=== PATIENT | male | born 1950 | race African-American/Black ===

== ENCOUNTER 2016-08-03 01:47 | Inpatient (IN) ==
[2016-08-03 02:20] LABS: Eosinophils % 0.3 % (0.00-10.9); Hematocrit 21.4 VOL% (42.0-52.0); Hemoglobin 6.7 GM/DL (14.0-18.0); Immature Granulocytes % 0.8 %; Immature Granulocytes Absolute 0.06 #; Lymphocytes % 13.4 % (21.2-54.2); Mean Corpuscular HGB Conc 31.3 GM/DL (32-36); Mean Corpuscular Hemoglobin 28 PG (27-34); Mean Corpuscular Volume 89.2 FL (87-102); Mean Platelet Volume 9.6 FL (9.6-12.0); Monocytes # 0.7 10*3/uL (0.11-0.8); Monocytes % 9.1 % (1.7-12.7); Neutrophils # 5.9 10*3/uL (1.4-7.4); Neutrophils % 76.4 % (38.7-73.9); Platelet Count 402 10*3/uL (130-400); Red Cell Distribution Width 15.3 % (9.3-17.3); White Blood Count 7.8 10*3/uL (4.5-13.71)
[2016-08-03] MEDS ORDERED: DEXTROSE 5% NACL 0.45% 1,000 ML IV SCH (02:30)
[2016-08-03 02:41] LABS: Magnesium 2.5 MG/DL (1.8-2.4); Osmolality,Calculated 282.5 MOS/KG (273-304); Potassium 4.1 MMOL/L (3.5-5.1)
[2016-08-03] MEDS ORDERED: DEXTROSE 50% 25 GM/50 ML VIAL IV STA (03:09)
--- NOTE | 2016-08-03 03:10 | Emergency Department Note ---
Bhavna Christian Kasabria, am scribing for, and in the presence of, Mateo Huang MD 02:23. Sal Christian Robert M, MD, personally performed the services described in this documentation, ascribed by Abdelrahman Huggins in my presence, and it is both accurate and complete . Arrival - Arrival Chief Complaint: Non-Specific Stated Complaint: LOW BLOOD SUGAR ED Nursing Triage Note: PT WAS SENT PER FAMILY FOR LOW BLOOD SUGAR. STATES THAT HE STOPPED ALL HIS DIABETIC MEDICATIONS ABOUT THREE WEEKS AGO WHEN HE WAS LAST SEEN IN THE ER. PT HAS HISTORY OF PANCREATIC CANCER. DENIES ANY OTHER COMPLAINTS AT TIME OF TRIAGE. CBG AT TIME OF TRIAGE. 56MG/DL Mode of Arrival: Stretcher Source: Patient, Family (daughter ) Time Seen by Provider: 08/03/16 02:09 - History of Present Illness HPI Narrative: Pt is a 66 y/o black male presenting to the ED with c/o hypoglycemia. Pt has a PMH of pancreatic CA and has not taken his diabetic medications in three weeks because of personal choice. Pt's sclera is jaundice in appearance. He denies fever, chills, nausea, vomiting, diarrhea, abdominal pain, back pain, MCKENZIE, and vision change. He denies urinary symptoms such as dysuria, frequency, and hematuria. He states his PO intake has decreased due to loss of appetite. Pt continues to be compliant with his HTN medication and cholesterol medication. CBG at triage was 56MG/DL. . Consistency: constant Severity: moderate Allergies/Adverse Reactions: Allergies Allergy/AdvReac Type Severity Reaction Status Date / Time No Known Allergies Allergy Unverified 12/14/14 12:59 Home Medications: Home Medications Medication Instructions Recorded Confirmed Type Atorvastatin [Lipitor] 10 mg PO DAILY 12/14/14 08/03/16 History Losartan Potassium 50 mg PO BEDTIME 12/14/14 08/03/16 History Omeprazole 40 mg PO BEDTIME 12/14/14 08/03/16 History Review of System - Review of System 12 point system: reviewed and no additional remarkable complaints except as stated - Review of System Constitutional: Absent: chills, fever, weakness Eyes: Present: other (jaundice sclera ). Absent: vision change Head/Ears/Nose/Throat: Absent: earache, nasal drainage Respiratory: Absent: cough, wheezing Cardiovascular: Absent: chest pain, dyspnea on exertion Gastrointestinal: Absent: abdominal pain, nausea, vomiting Genitourinary male: Absent: dysuria Musculoskeletal: Absent: arm pain, back pain, leg pain, neck pain Skin: Absent: rash Neurological: Absent: headache, weakness, numbness, confusion, abnormal gait, vertigo Psychiatric: Absent: anxiety Endocrine: Absent: fatigue Hematological/Lymphatic: Absent: easy bleeding Allergic/Immunologic: Absent: facial swelling Medical,Surgical,& Family Hx - Medical History Cardio: History of: Hypertension HEENT: History of: Eye Problem (READING GLASSES) Endocrine: History of: Diabetes Mellitus (NIDDM), Dyslipidemia Renal: History of: Renal Problems (STENT PLACED/ FOR CYSO STENT CHANGE 12/21/14) Gastrointestinal: History of: GERD Other: History of: Cancer (PANCREATIC CA APR 2014 DR. YOUNG-PT NO LONGER TAKING CHEMO PER HIS DECISION) - Surgical History Abdominal Surgeries: Surgical HX of: Appendectomy, Colonoscopy, Hernia Repair ( INGUINAL HERNIA REPAIR) - Family History Family History: Reports;: Family Cancer (MOTHER), Family Diabetes (MOTHER), Family Hypertension (MOTHER) - Social History Smoking Status: Never smoker Frequency of Alcohol Use: None Type of Drug Use: None Exam Vital Signs: Vital Signs Temperature 98.6 F 08/03/16 01:47 Pulse Rate 79 08/03/16 02:53 Respiratory Rate 20 08/03/16 02:53 Blood Pressure 96/65 08/03/16 02:53 O2 Sat by Pulse Oximetry 100 08/03/16 02:53 - General General appearance: alert, in no apparent distress - Head Head exam: Present: atraumatic, normocephalic, normal inspection - Eye Eye exam: Present: PERRL, EOMI, other (scleral jaundice ). Absent: normal appearance - ENT ENT exam: Present: normal exam, normal oropharynx, mucous membranes moist, TM's normal bilaterally, normal external ear exam - Neck Neck exam: Present: normal inspection, full ROM, trachea midline. Absent: tenderness - Chest Chest inspection: Present: normal inspection, symmetric chest wall rise - Respiratory Respiratory exam: Present: normal lung sounds bilaterally - Cardiovascular Cardiovascular exam: Present: regular rate, normal rhythm, normal heart sounds - Abdominal Exam Abdominal exam: Present: soft, normal bowel sounds. Absent: distention, tenderness, guarding, rebound - Extremities Exam Extremities exam: Present: normal inspection, full ROM. Absent: tenderness, normal capillary refill, pedal edema, calf tenderness - Back Exam Back exam: Present: normal inspection, full ROM. Absent: tenderness - Neurological Exam Neurological exam: Present: alert, oriented X3, CN II-XII intact, normal gait, reflexes normal. Absent: motor sensory deficit - Psychiatric Psychiatric exam: Present: normal affect, normal mood - Skin Skin exam: Present: warm, dry, intact, normal color. Absent: rash Course - Consultations Consultation #1: Dr. Shade Escobar will evaluate and admit the patient. Time: 03:10 Results - Labs CBC & BMP: 08/03/16 02:04 08/03/16 02:04 Lab Results: I have reviewed the patients labs Labs: Lab Results WBC 7.8 10*3/uL (4.5-13.71) 08/03/16 02:04 RBC 2.40 10*6/uL (3.8-5.5) L 08/03/16 02:04 Hgb 6.7 GM/DL (14.0-18.0) L 08/03/16 02:04 Hct 21.4 VOL% (42.0-52.0) L 08/03/16 02:04 MCV 89.2 FL (87-102) 08/03/16 02:04 MCH 28 PG (27-34) 08/03/16 02:04 MCHC 31.3 GM/DL (32-36) L 08/03/16 02:04 RDW 15.3 % (9.3-17.3) 08/03/16 02:04 Plt Count 402 10*3/uL (130-400) H 08/03/16 02:04 MPV 9.6 FL (9.6-12.0) 08/03/16 02:04 Neut % (Auto) 76.4 % (38.7-73.9) H 08/03/16 02:04 Lymph % (Auto) 13.4 % (21.2-54.2) L 08/03/16 02:04 [place] % (Auto) 9.1 % (1.7-12.7) 08/03/16 02:04 Eos % (Auto) 0.3 % (0.00-10.9) 08/03/16 02:04 Baso % (Auto) 0.0 % (0.0-0.8) 08/03/16 02:04 Neut # (Auto) 5.9 10*3/uL (1.4-7.4) 08/03/16 02:04 Lymph # (Auto) 1.0 10*3/uL (1.4-4.0) L 08/03/16 02:04 [place] # (Auto) 0.7 10*3/uL (0.11-0.8) 08/03/16 02:04 Eos # (Auto) 0.0 10*3/uL (0.0-0.87) 08/03/16 02:04 Baso # (Auto) 0.0 10*3/uL (0.0-0.2) 08/03/16 02:04 Immature Gran % 0.8 % 08/03/16 02:04 Nucleated RBC % 0.0 /100WBC 08/03/16 02:04 Immature Gran # 0.06 # 08/03/16 02:04 Nucleated RBCs # 0.00 10*3/uL 08/03/16 02:04 Sodium 139 MMOL/L (136-145) 08/03/16 02:04 Potassium 4.1 MMOL/L (3.5-5.1) 08/03/16 02:04 Chloride 107 MMOL/L (98-107) 08/03/16 02:04 Carbon Dioxide 20 MMOL/L (21-32) L 08/03/16 02:04 Anion Gap 16.1 MMOL/L (5.0-15.0) H 08/03/16 02:04 BUN 39 MG/DL (7-18) H 08/03/16 02:04 Creatinine 3.80 MG/DL (0.70-1.30) H 08/03/16 02:04 GFR Calculation 18 ML/MIN 08/03/16 02:04 BUN/Creatinine Ratio 10.00 RATIO (6.00-20.00) 08/03/16 02:04 Glucose 52 MG/DL (74-106) L 08/03/16 02:04 Calculated Osmolality 282.5 MOS/KG (273-304) 08/03/16 02:04 Calcium 8.0 MG/DL (8.5-10.1) L 08/03/16 02:04 Magnesium 2.5 MG/DL (1.8-2.4) H 08/03/16 02:04 Disposition Clinical Impression: terminal pancreatic cancer, Symptomatic anemia, Adult onset persistent hyperinsulinemic hypoglycemia without insulinoma Case discussed with: patient, patient's family Disposition: Still a Patient Condition: Stable Time of Disposition: 03:09
[2016-08-03] MEDS ORDERED: ONDANSETRON 4 MG/2 ML VIAL IV PRN (03:11)
[2016-08-03] MEDS ORDERED: guaiFENesin/DM ER 600-30 MG TABLET PO PRN (03:11)
[2016-08-03] MEDS ORDERED: DOCUSATE SODIUM 100 MG CAPSULE PO PRN (03:11)
[2016-08-03] MEDS ORDERED: DEXTROSE 50% 25 GM/50 ML VIAL IV ONE (03:11)
[2016-08-03] MEDS ORDERED: GLUCAGON 1 MG VIAL IM PRN (03:13)
[2016-08-03] MEDS ORDERED: SODIUM CHLORIDE 0.9% 250 ML IV PRN (03:14)
[2016-08-03] MEDS: DEXTROSE 50% 25 GM/50 ML VIAL IV PRN ×5 (07:23→22:36)
[2016-08-03] MEDS: INSULIN LISPRO 100 UNIT/ML SUBCUT SCH ×4 (07:25→21:14)
[2016-08-03] MEDS: PANTOPRAZOLE 40 MG TABLET PO SCH (10:05)
--- NOTE | 2016-08-03 13:01 | Family Practice History&Phys ---
Assessment and Plan (1) Symptomatic anemia Status: Acute Assessment and plan: 08/03/2016 we are transfusing him 2 units of blood will check an H&H in about 4 hours Current Visit: Yes (2) Adult onset persistent hyperinsulinemic hypoglycemia without insulinoma Status: Acute Assessment and plan: 08/03/2016. We are going to watch his blood sugars at with Accu-Cheks and given glucose necessary. Will have him on a sliding scale Ben to Current Visit: Yes (3) Pancreatic cancer Status: Acute Assessment and plan: 08/13/2016: Patient is being Treated for pain and palliation. We'll going to hold off oncology services Current Visit: Yes History of Present Illness Chief complaint: weakness, symptomatic anemia, hypoglycemia History of present illness: Mr. Serna is a 66 year old male A primary patient of Dr. Barney Mai came in to the emergency room with symptomatic anemia and weakness and also had some mild shortness of breath as well as hypoglycemia. His blood sugar was very low, 52 in the emergency room And was given glucose. It was noted also that his hemoglobin and hematocrit were 6 and 21. He does have a history of pancreatic cancer which is being treated in a palliative fashion at this time. He is severely hyperbilirubinemic with scleral icterus. His creatinine is also elevated at 3.8 which on previous admission was about 2.1. He is alert and oriented and answers all questions appropriately and is in no acute respiratory distress nor does he have any chest pain or any significant abdominal pain. As mentioned we are only treating the patient's pain and generalized symptoms palliatively. Were not doing any chemotherapy or radiation therapy. Historically had seen Dr. young and if any problems occur otherwise, we'll consider consult. Otherwise will give him blood and watch his sugars at this time. We will get him on sliding scale and treat him with glucose necessary. The family was in the room and they are in full agreement with above plan Home Medications Medication Instructions Recorded Confirmed Type Losartan Potassium 50 mg PO BEDTIME 12/14/14 08/03/16 History Omeprazole 40 mg PO BEDTIME 12/14/14 08/03/16 History Ondansetron HCl 4 mg PO Q6HR PRN 08/03/16 08/03/16 History Simvastatin [Zocor] 20 mg PO DAILY 08/03/16 08/03/16 History Allergies Allergy/AdvReac Type Severity Reaction Status Date / Time No Known Allergies Allergy Unverified 12/14/14 12:59 12 point system: reviewed and no additional remarkable complaints except as stated - EENT Nose, mouth and throat: Present: as per HPI - Cardiovascular Cardiovascular: Absent: chest pain at rest, diaphoresis - Gastrointestinal Gastrointestinal: Absent: abdominal pain, bloating - Musculoskeletal Musculoskeletal: Present: other (generalized fatigue and muscle wasting) Medical,Surgical,& Family Hx - Medical History Cardio: History of: Hypertension HEENT: History of: Eye Problem (READING GLASSES) Endocrine: History of: Diabetes Mellitus (NIDDM), Dyslipidemia Rheumatology: History of;: Rheumatoid Arthritis Renal: History of: Renal Problems (STENT PLACED/ FOR CYSO STENT CHANGE 12/21/14) Gastrointestinal: History of: GERD, Liver Problems (jaundice) Musculoskeletal: History of: Herniated Disk Hematology: History of: Anemia Other: History of: Cancer (PANCREATIC CA APR 2014 DR. YOUNG-PT NO LONGER TAKING CHEMO PER HIS DECISION) - Surgical History HEENT Surgeries: Patient denies: Tonsilectomy & Adenoidectomy Abdominal Surgeries: Surgical HX of: Appendectomy, Colonoscopy, Hernia Repair ( INGUINAL HERNIA REPAIR) - Family History Family History: Reports;: Family Cancer (MOTHER), Family Diabetes (MOTHER), Family Hypertension (MOTHER) - Social History Smoking Status: Never smoker Frequency of Alcohol Use: None Type of Drug Use: None Exam - Constitutional Vitals: Period Temp Pulse Resp BP Sys/Zhu Pulse Ox Last 24 Hr 95.2 F-98.1 F 68-93 18-24 80-127/52-82 99 Exam: Generally somewhat emaciated. He has obvious scleral icterus. It is very alert however and oriented. HEENT neck is supple trachea midline. Lungs generally clear Except for a few basilar rails. Patient does have a Mediport in place on the left subclavian area Abdomen soft nondistended patient denies any pain Extremities no clubbing cyanosis or edema. There is some generalized mild muscle wasting. Neurologically no lateralizing signs or motor sensory deficits. Results - Labs CBC & BMP: 08/03/16 02:04 08/03/16 02:04
[2016-08-03] MEDS: GLUCAGON 1 MG VIAL IV PRN ×4 (13:31→22:13)
[2016-08-03] MEDS ORDERED: DEXTROSE 10% 1,000 ML IV SCH (16:00)
[2016-08-03] MEDS: LOSARTAN 50 MG TABLET PO SCH (21:11)
[2016-08-03] MEDS ORDERED: methylPREDNISolone SOD SUC 125 MG/2 ML VIAL IV ONE (22:23)
[2016-08-04 00:24] LABS: Hematocrit 29.9 VOL% (42.0-52.0); Hemoglobin 10.2 GM/DL (14.0-18.0)
[2016-08-04] MEDS: GLUCAGON 1 MG VIAL IV PRN (00:28)
[2016-08-04] MEDS ORDERED: DEXTROSE IV SCH ×2 (01:00)
[2016-08-04] MEDS: DEXTROSE 50% 25 GM/50 ML VIAL IV PRN ×2 (02:38→04:15)
--- NOTE | 2016-08-04 08:22 | Family Practice Progress Note ---
Family Practice - PN: Subj Interval history: Patient is doing fairly well over the last 12 hours and his blood sugars seem to be stable with D12.5 infusing. Patient states he just does not have any appetite and I asked him if he can take some boost or something sophy to that he thought he might. He denies any abdominal pain or discomfort. I think it safe for him to go to the floor with a monitor and frequent Accu-Cheks. He is a DNR. Exam (Progress Note) - Constitutional Vitals: Period Temp Pulse Resp BP Sys/Zhu Pulse Ox Last 24 Hr 95.2 F-100.1 F 57-84 11-24 80-132/52-82 97-100 Exam: Objective a well-developed gentleman who is awake alert and able give a good history. Cardiovascular: Heart rates regular there is no murmurs or gallops. Respiratory: Lungs clear to auscultation bilaterally. Abdomen: Name is completely soft and nontender to palpation. Results - Labs CBC & BMP: 08/03/16 23:44 08/03/16 02:04 Lab Results: I have reviewed the past 24 hour labs Assessment and Plan (1) Adult onset persistent hyperinsulinemic hypoglycemia without insulinoma Status: Acute Assessment and plan: 08/04/2016: We will continue dextrose infusion Current Visit: Yes (2) Pancreatic cancer Status: Acute Assessment and plan: 08/04/2016: Patient does not request any further therapy. Current Visit: Yes Specialty Discharge - Follow Up or Referrals - Discharge Medications No Action Omeprazole 40 mg PO BEDTIME Losartan Potassium 50 mg PO BEDTIME Ondansetron HCl 4 mg PO Q6HR PRN PRN Reason: Nausea Simvastatin [Zocor] 20 mg PO DAILY
[2016-08-04] MEDS: INSULIN LISPRO 100 UNIT/ML SUBCUT SCH ×3 (08:27→16:43)
[2016-08-04] MEDS: PANTOPRAZOLE 40 MG TABLET PO SCH ×2 (08:27→21:01)
[2016-08-04] MEDS ORDERED: ONDANSETRON 4 MG TABLET PO PRN (11:13)
[2016-08-04] MEDS: DEXTROSE IV SCH (15:15)
[2016-08-04] MEDS: LOSARTAN 50 MG TABLET PO SCH (21:01)
[2016-08-05] MEDS: DEXTROSE IV SCH (05:26)
[2016-08-05] MEDS ORDERED: DEXTROSE 5% NACL 0.45% 1,000 ML IV SCH (07:30)
--- NOTE | 2016-08-05 08:13 | Family Practice Progress Note ---
Family Practice - PN: Subj Interval history: Patient is actually doing a little bit better and his blood sugars are running around 200. He denies any pain or discomfort today. Heart tones were going to reduce his IV to D5 and asked him to try to drink Ensure at least 3 times a day. If his sugars remain good we will probably let him go home tomorrow. Exam (Progress Note) - Constitutional Vitals: Period Temp Pulse Resp BP Sys/Zhu Pulse Ox Last 24 Hr 96.7 F-98.5 F 57-71 20-20 110-130/62-74 96-100 Exam: Objective a well-developed gentleman who is awake alert and able give a good history. He appears comfortable. Cardiovascular: Heart rates regular there is no murmurs or gallops. Respiratory: Lungs clear to auscultation bilaterally. Abdomen: Abdomen is completely soft and nontender to palpation. Results - Labs CBC & BMP: 08/03/16 23:44 08/03/16 02:04 Lab Results: I have reviewed the past 24 hour labs Assessment and Plan (1) Adult onset persistent hyperinsulinemic hypoglycemia without insulinoma Status: Acute Assessment and plan: 08/04/2016: We will continue dextrose infusion 08/05/2016: We will reduce her IV glucose to D5 encouraged him to increase his intake. Current Visit: Yes (2) Pancreatic cancer Status: Chronic Assessment and plan: 08/04/2016: Patient does not request any further therapy. 08/05/2016: Patient refuses further therapy. Current Visit: Yes Specialty Discharge - Follow Up or Referrals - Discharge Medications No Action Omeprazole 40 mg PO BEDTIME Losartan Potassium 50 mg PO BEDTIME Ondansetron HCl 4 mg PO Q6HR PRN PRN Reason: Nausea fentaNYL 12 MCG/HR PATCH [Duragesic 12 Patch] 1 patch TRANSDERM Q72H Simvastatin [Zocor] 20 mg PO DAILY
[2016-08-05] MEDS: PANTOPRAZOLE 40 MG TABLET PO SCH ×2 (09:39→20:23)
[2016-08-05] MEDS ORDERED: fentaNYL 12 MCG/HR PATCH TRANSDERM SCH (14:00)
[2016-08-05] MEDS: SODIUM CHLORIDE 0.45% 1,000 ML IV SCH (14:03)
[2016-08-05] MEDS: INSULIN REGULAR 100 UNIT/ML SUBCUT SCH (20:22)
[2016-08-05] MEDS: ZALEPLON 5 MG CAPSULE PO PRN (20:22)
[2016-08-05] MEDS: LOSARTAN 50 MG TABLET PO SCH (20:23)
[2016-08-06] MEDS: DEXTROSE 50% 25 GM/50 ML VIAL IV PRN (07:25)
--- NOTE | 2016-08-06 08:18 | Family Practice Progress Note ---
Family Practice - PN: Subj Interval history: Patient did have low blood sugar this morning because sugars were around 200 all day yesterday. I am going to have childbirth educator come to discuss with him the treatment of hypoglycemia. He is drinking some Ensure and all refused. I told him this was necessary to keep him from having hypoglycemia again. He understands this. Exam (Progress Note) - Constitutional Vitals: Period Temp Pulse Resp BP Sys/Zhu Pulse Ox Last 24 Hr 96.6 F-97.7 F 52-84 18-20 112-143/73-82 93-100 Exam: Objective a well-developed gentleman who is awake alert and able give a good history. He appears comfortable. Cardiovascular: Heart rates regular there is no murmurs or gallops. Respiratory: Lungs clear to auscultation bilaterally. Abdomen: Abdomen is completely soft and nontender to palpation. Results - Labs CBC & BMP: 08/03/16 23:44 08/03/16 02:04 Lab Results: I have reviewed the past 24 hour labs Assessment and Plan (1) Adult onset persistent hyperinsulinemic hypoglycemia without insulinoma Status: Acute Assessment and plan: 08/04/2016: We will continue dextrose infusion 08/05/2016: We will reduce her IV glucose to D5 encouraged him to increase his intake. 08/06/2016: Patient is improving. Current Visit: Yes (2) Pancreatic cancer Status: Chronic Assessment and plan: 08/04/2016: Patient does not request any further therapy. 08/05/2016: Patient refuses further therapy. Current Visit: Yes
[2016-08-06] MEDS: INSULIN REGULAR 100 UNIT/ML SUBCUT SCH ×4 (10:48→20:43)
[2016-08-06] MEDS: PANTOPRAZOLE 40 MG TABLET PO SCH ×2 (11:06→20:44)
[2016-08-06] MEDS: SODIUM CHLORIDE 0.45% 1,000 ML IV SCH ×2 (16:41→18:03)
[2016-08-06] MEDS: LOSARTAN 50 MG TABLET PO SCH (20:44)
[2016-08-07] MEDS: ZALEPLON 5 MG CAPSULE PO PRN (00:13)
[2016-08-07] MEDS: SODIUM CHLORIDE 0.45% 1,000 ML IV SCH (06:16)
--- NOTE | 2016-08-07 08:22 | Discharge Summary ---
Hospital Course - Hospital Course Hospital Course: Patient 66-year-old black male admitted with hypoglycemia. Patient has a history of stage IV pancreatic cancer and had been followed at [facility]. Patient decided to stop chemotherapy and is had a notable decline in the last 2 months. Losing weight and has little appetite. Patient was found be hypoglycemic and had to be admitted to intensive care for Accu-Cheks and D 12.5 infusion. Patient's blood sugar finally stabilized he was encouraged to increase his intake which certainly helped. He denies any abdominal pain thankfully is able to drink some in sure he drinks September. Seen by diabetic education concerning the treatment of hypoglycemia until he would certainly have more episodes of this and the family understands the need to be compared. He is to return if he has significant worsening. He is a DNR by his own choice. Diagnosis - Discharge Diagnosis (1) Adult onset persistent hyperinsulinemic hypoglycemia without insulinoma Status: Acute (2) Pancreatic cancer Status: Chronic Discharge Plan - Discharge Data Disposition: Disch To Home/Self Care Condition at Discharge: Stable Discharge Diet: regular diet Activity: resume usual activities as tolerated Hygiene: no restrictions Weight Bearing at Discharge: full weight bearing Contact your physician if you experience:: fever over 101 - Discharge Medications New Zaleplon [Sonata] 5 mg PO BEDTIME PRN #30 capsule PRN Reason: Insomnia guaiFENesin/DM ER 600-30 [Mucinex Dm] 1 tablet PO BID PRN #0 tablet PRN Reason: Congestion Continue Omeprazole 40 mg PO BEDTIME Losartan Potassium 50 mg PO BEDTIME Ondansetron HCl 4 mg PO Q6HR PRN PRN Reason: Nausea fentaNYL 12 MCG/HR PATCH [Duragesic 12 Patch] 1 patch TRANSDERM Q72H Discontinued Simvastatin [Zocor] 20 mg PO DAILY - Follow Up or Referral - Forms/Instructions Exam - Constitutional Vitals: Period Temp Pulse Resp BP Sys/Zhu Pulse Ox Last 24 Hr 96.7 F-99.2 F 84-97 19-20 111-121/59-73 95-99 Exam: Objective a well-developed gentleman who is awake alert and able give a good history. He appears comfortable. Cardiovascular: Heart rates regular there is no murmurs or gallops. Respiratory: Lungs clear to auscultation bilaterally. Abdomen: Abdomen is completely soft and nontender to palpation. Discharge Results Labs on day of discharge: Labs from last 24 hours 08/07/16 08/07/16 08/07/16 06:14 02:43 00:09 POC Glucose 86 124 H 82 08/06/16 08/06/16 08/06/16 19:18 15:27 11:07 POC Glucose 102 96 99 DS: Provider Date of admission: 08/04/16 14:44 Primary care physician: Barney Mai MD Attending physician on admission: Barney Mai MD Consults: 08/06/16 08:19 Consult to [facility], Educator [CONS] Routine Reason for Clerical Administrator: Diabetes Education Consult Comment: For treatment of hypoglycemia. Discharging clinician: Barney Mai MD Expected date of discharge: 08/07/16
[2016-08-07] MEDS: INSULIN REGULAR 100 UNIT/ML SUBCUT SCH ×2 (08:47→11:58)
[2016-08-07] MEDS: PANTOPRAZOLE 40 MG TABLET PO SCH (09:18)
[2016-08-07 11:19] VITALS: BP 120/72
== END 2016-08-07 11:55 | disposition home or self-care (01) | DRG 638 ==
LOC: EDUNIT# → EDBD → N.EDINP 01:47 → N.ED 01:47 → N.EDINP 03:37 → N.4E 04:02 → N.ICU 08-04 01:20 → N.4E 08-04 11:13
PROVIDERS: ADMIT Family Medicine; ATTEND Family Medicine